=== PATIENT | female | born 1955 | race Caucasian/White ===

== ENCOUNTER 2016-10-13 08:08 | Inpatient (IN) | payer BC ==
--- NOTE | ~2016-10-13 | DS ---
Discharge Summary [facility] [address] [place]. [address] NAME: ANDREA CASTILLO : 59 STATUS : DIS IN PAT#: [id number] AGE: 60 ADM/REG DATE : 10/13/16 MR#: [id number] REPORT SERV DATE: 10/27/16 DICTATED BY: SEAMUS CARDENAS DATE: 10/26/16 REPORT STATUS : Draft TRANSCRIBED BY: TOM DATE: 10/26/16 Data Collection from hospitalization DISCHARGE DIAGNOSES: 1. Right knee arthritis. 2. Hmt-ytwqdbz-pllrkuolu diabetes. 3. Obesity. 4. Hyperlipidemia. 5. Anxiety. 6. History of dysrhythmia with stress. CONSULTATIONS: None. PROCEDURES PERFORMED: Right total knee arthroplasty, 10/13/2016. PATHOLOGY: Right knee joint arthroplasty - degenerative joint disease. No evidence was seen of an infectious or neoplastic process. DISCHARGE MEDICATIONS: Lipitor 20 mg at bedtime, CoQ10 of 100 mg at bedtime, [place] 7.5/325 every 4 to 6 hours as needed and as instructed, Glucophage 500 mg at bedtime, fish oil 1000 mg daily, Zofran 4 mg every six hours as needed, Paxil 20 mg daily, and Coumadin 5 mg daily. CONDITION AT DISCHARGE: Stable. DISPOSITION: The patient was discharged home on an 1800-calorie diabetic diet with no concentrated carbohydrates and activities as instructed. She would follow up with me on 10/29/2016. She would follow up at [facility] [place] on10/19/2016 for physical therapy and at [facility] on Mondays or Tuesdays for lab work as instructed. HOSPITAL COURSE: This is a 60-year-old female who has right knee arthritis. Treatment options were discussed, and it was elected to proceed with surgical intervention. She was admitted to the hospital at this time for further evaluation and treatment. Upon admission, she was taken to the operating room where she underwent the above-mentioned procedure. She tolerated this well. There were no complications. Postoperatively, she was evaluated by Physical Therapy. She was refusing glucose checks and refused sliding scale insulin. She said she was not a diabetic. On postop day 1, INR level was 1.1, she was doing well postoperatively. Occupational Therapy evaluated the patient. On postop day #2, she said she was feeling better. Her right medial nerve pain had improved. She was working with Physical Therapy. LINDA hose were in place. Lipitor and Paxil were continued. She does have type 2 diabetes mellitus - metabolic syndrome, but does not take medications, this is diet controlled. On 10/16/2016, she was up sitting in a bedside chair. She was in no acute distress. She had normal distal pulses. Metformin was restarted. Discharge instructions were given. Due to her improved and stable condition, she was discharged home with the above-stated instructions. Information collected by: Elvira Smith Discharge Summary [address] [address] NAME: ANDREA CASTILLO : 59 STATUS : DIS IN PAT#: [id number] AGE: 60 ADM/REG DATE : 10/13/16 MR#: [id number] REPORT SERV DATE: 10/27/16 DICTATED BY: SEAMUS CARDENAS DATE: 10/26/16 REPORT STATUS : Draft TRANSCRIBED BY: TOM DATE: 10/26/16 I submit the above information as my discharge summary. TG/TOM Seamus Cardenas M.D. / [id number] CC: Yudelka Londono D.O. Terri Brunvoll, D.O.
--- NOTE | ~2016-10-13 | OP ---
Record Of Operation [facility] [address] [place]. [address] NAME: ANDREA CASTILLO : 59 STATUS : ADM IN PAT#: [id number] AGE: 60 ADM/REG DATE : 10/13/16 MR#: [id number] REPORT SERV DATE: 10/13/16 DICTATED BY: SEAMUS CARDENAS DATE: 10/13/16 REPORT STATUS : Draft TRANSCRIBED BY: MODL DATE: 10/13/16 DATE OF PROCEDURE: 10/13/2016 PREOPERATIVE DIAGNOSIS: Right knee arthritis. POSTOPERATIVE DIAGNOSIS: Right knee arthritis. PROCEDURE PERFORMED: Right total knee arthroplasty. SURGEON: Seamus Cardenas M.D. POURER CRANE LADLE: Keagan Gutierrez. ANESTHESIA: Spinal with sedation, adductor block, and local infusion. PROCEDURE IN DETAIL: The patient is clearly identified and after obtaining informed consent is brought to the operating room at [facility] where anesthesia is induced uneventfully with excellent anesthetic effect. Subsequently, the affected extremity is prepped and draped in the usual manner and after an appropriate time-out procedure is performed, via an anterior approach, the skin is divided, fascial planes are elevated, paramedial approach to the knee is made. The structures themselves are elevated, excised, and debrided were appropriate, whereupon the patella is carefully everted, calipered, and planed and with the size and type being reproduced with the appropriate-size patella, trialing is performed successfully. At this point, the patella is then carefully subluxed laterally, the knee is flexed, osteophytes around the distal femur are removed, followed by the ACL being divided. The femoral canal is entered and vented, at which point with the intramedullary guide being utilized, the distal femoral cut is made. At this point, the tibia is carefully subluxed anteriorly. The surrounding soft tissues to the tibia are protected with Hohmann retractors, at which point the extramedullary guide is utilized to perform the proximal tibial cut and after cleansing these tissues, the spacer block is utilized in extension to confirm excellent extension, stability, and alignment. The guiding pins are then all carefully removed and the knee is then flexed. The femur is sized, whereupon the anterior, posterior, chamfer, and box cuts are made appropriately. The proximal tibia then is assessed. Osteophytes and surrounding soft tissues are removed and debrided were appropriate. Posterior osteophytes are removed as well. The menisci are excised and thus concluding trialings performed successfully. The proximal tibia then is carefully prepared utilizing proper cement technique. The permanent implants have been carefully placed into position uneventfully where upon copious irrigations performed, the permanent tibial implants applied and thus concluded. The joint was then copiously irrigated, at which point it is closed carefully in layers including Vicryl and neeta for the skin, at which point Aquacel sterile dressing is applied. The patient is allowed to awaken and is transferred to the bed and subsequently to the recovery room in stable condition having tolerated the procedure well. ESTIMATED BLOOD LOSS: 50 mL. Record Of Operation [address] [place]. [address] NAME: ANDREA CASTILLO : 59 STATUS : ADM IN [facility]#: [id number] AGE: 60 ADM/REG DATE : 10/13/16 MR#: [id number] REPORT SERV DATE: 10/13/16 DICTATED BY: SEAMUS CARDENAS DATE: 10/13/16 REPORT STATUS : Draft TRANSCRIBED BY: TOM DATE: 10/13/16 FLUIDS: 700 mL. TOURNIQUET TIME: 38 minutes. PATHOLOGY: Sent specimen. MICROBIOLOGY: None. COMPLICATIONS: None. SPONGE AND NEEDLE COUNTS: Reportedly correct. ANTIBIOTICS: Administered appropriately preoperatively and ordered to be discontinued within 23 hours. IMPLANTS: Attune knee by DePuy, femur 6 standard, tibia 5, patella 38, polyethylene 11/28. BERNARDO/TOM Seamus Cardenas M.D. / [id number] CC: Seamus Cardenas M.D.
[~2016-10-13 08:08] MED LIST: ALEVE220 MG PO; CO Q-10100 MG PO; FISH-EPA1000 MG PO; GLUCPH PO; LIPITOR20 PO; MOBIC7.5 PO; MULTIVITAMI1 PO; PAX20 PO
[2016-10-14 05:41] LABS: HEMOGLOBIN 11.1 g/dL (12.0-16.0)
[2016-10-14 05:43] LABS: HEMATOCRIT 33.6 % (36.0-48.0)
[2016-10-14 05:46] LABS: INTERNATIONAL NORMAL RATI 1.1 UNITS (-); PROTIME (NOT ORD) 14.4 SEC (12.0-14.5)
[2016-10-14 05:52] LABS: BUN (BLOOD UREA NITROGEN) 11 MG/DL (6-23); CHLORIDE, SERUM 104 MMOL/L (96-112); CO2 (CARBON DIOXIDE) 28 MMOL/L (24-34); CREATININE 0.85 MG/DL (0.55-1.02); GFR AFRICAN AMERICAN 88 ML/MIN (>=60); GFR NON AFRICAN AMERICAN 76 ML/MIN (>=60); GLUCOSE, SERUM 105 MG/DL (60-99); SODIUM, SERUM 138 MMOL/L (135-148)
[2016-10-14 05:58] LABS: POTASSIUM, SERUM 4.7 MMOL/L (3.5-5.3)
[2016-10-15 06:12] LABS: HEMATOCRIT 32.6 % (36.0-48.0); HEMOGLOBIN 10.9 g/dL (12.0-16.0)
[2016-10-15 06:14] LABS: INTERNATIONAL NORMAL RATI 1.4 UNITS (-)
[2016-10-15 06:15] LABS: PROTIME (NOT ORD) 16.9 SEC (12.0-14.5)
[2016-10-16 05:35] LABS: BASOPHILS 0.2 %; BASOPHILS ABSOLUTE 0.02 10/3/uL (0.0-0.16); EOSINOPHILS 3.7 %; HEMATOCRIT 31.8 % (36.0-48.0); HEMOGLOBIN 10.4 g/dL (12.0-16.0); IMMATURE GRANULOCYTES 0.2 %; IMMATURE GRANULOCYTES ABSOLUTE 0.02 10/3/uL (0.0-0.11); LYMPHOCYTES 19.6 %; MANUAL DIFF NO %; MEAN CORPUS HGB CONC 32.7 g/dL (32.0-36.0); MEAN CORPUSCULAR HEMOGLOB 29.3 pg (26.0-34.0); MEAN CORPUSCULAR VOLUME 89.6 fL (80-100); MEAN PLATELET VOLUME 9.2 fL (9.2-13.0); MONOCYTES 8.2 %; MONOCYTES ABSOLUTE 0.67 10/3/uL (0.21-1.20); NEUTROPHILS 68.1 %; NEUTROPHILS ABSOLUTE 5.54 10/3/uL (2.02-8.40); PLATELET COUNT 300 10/3/uL (150-400); RBC DISTRIBUTION WIDTH 13.1 % (12.0-16.0); RED CELL COUNT 3.55 10/6/uL (4.0-5.6); WHITE BLOOD CELLS 8.2 10/3/uL (4.5-10.5)
[2016-10-16 05:36] LABS: CALCIUM, SERUM 8.8 MG/DL (8.5-10.4); CHLORIDE, SERUM 102 MMOL/L (96-112); CO2 (CARBON DIOXIDE) 31 MMOL/L (24-34); CREATININE 0.72 MG/DL (0.55-1.02); GFR AFRICAN AMERICAN 107 ML/MIN (>=60); GFR NON AFRICAN AMERICAN 92 ML/MIN (>=60); GLUCOSE, SERUM 109 MG/DL (60-99); INTERNATIONAL NORMAL RATI 1.7 UNITS (-); SODIUM, SERUM 138 MMOL/L (135-148)
[2016-10-16 05:39] LABS: PROTIME (NOT ORD) 19.5 SEC (12.0-14.5)
[2016-10-16 05:50] LABS: BUN (BLOOD UREA NITROGEN) 7 MG/DL (6-23); POTASSIUM, SERUM 3.7 MMOL/L (3.5-5.3)
[2016-10-16] MEDS ORDERED: C5 PO (12:23)
[2016-10-16] MEDS ORDERED: NORCO1 TA1 PO (12:24)
[2016-10-16] MEDS ORDERED: ZOFRAN4 PO (12:24)
== END 2016-10-16 14:16 | disposition home or self-care (01) | DRG 470 ==
LOC: SDC/OF 08:08 → PACU 12:05 → 3JRC 12:57
PROVIDERS: Orthopaedic Surgery
PROC: 3E0T3CZ (ICD-10-PCS; 2016-10-13)
PROC: 0SRC0J9 Replacement of Right Knee Joint with Synthetic Substitute, Cemented, Open Approach (ICD-10-PCS; principal; 2016-10-13 09:00)
DX: M17.11 Unilateral primary osteoarthritis, right knee (principal); F32.9 Major depressive disorder, single episode, unspecified; E78.5 Hyperlipidemia, unspecified; E11.9 Type 2 diabetes mellitus without complications; Z79.899 Other long term (current) drug therapy; Z79.84 Long term (current) use of oral hypoglycemic drugs; E66.9 Obesity, unspecified; Z68.36 Body mass index [BMI] 36.0-36.9, adult; F41.9 Anxiety disorder, unspecified
CPT/HCPCS: 36415; 71020; 80048; 80053; 81001; 82962; 85014; 85018; 85025; 85610; 85730; 86850; 86900; 86901; 87641; 88305; 88311; 93005; 97110-GP; 97116-GP; 97150-GP; 97161-GP; 97165-GO; A9270-GY; C1776; J0690; J1885; J2250; J2274; J2370; J2405; J2795; J3010